=== PATIENT | female | born 1965 | race Two or more races ===

== ENCOUNTER 2024-03-25 23:39 | Emergency (ER) | payer MEDICAID, OTHER ==
[~2024-03-25] VITALS: Ht 162.6 cm; Wt 77.6 kg
[2024-03-26 02:30] LABS: Basophils # (auto) 0 10 ^3/uL (0-0.2); Basophils % (auto) 0.2 % (0.0-2.0); Eosinophils # (auto) 0 10 ^3/uL (0-0.8); Eosinophils % (auto) 0.1 % (0.0-7.0); Hematocrit 40.9 % (36.0-46.0); Hemoglobin 13.7 g/dL (12.2-16.2); Lymphocytes # (auto) 0.9 10 ^3/uL (0.4-5.4); Lymphocytes % (auto) 9.2 % (10.0-50.0); Mean Corpuscular Hemoglobin 29.6 pg (28.0-32.0); Mean Corpuscular Hgb Conc. 33.5 g/dL (32.0-36.0); Mean Corpuscular Volume 88.5 fL (80.0-100.0); Monocytes # (auto) 0.4 10 ^3/uL (0-1.3); Monocytes % (auto) 4.2 % (0.0-12.0); Neutrophils # (auto) 8.2 10 ^3/uL (1.6-8.6); Neutrophils % (auto) 86.3 % (37.0-80.0); Red Blood Cells 4.62 10^6/uL (4.0-5.20); Red Cell Distribution Width 15.3 % (11.8-14.3); White Blood Cell 9.5 10^3/uL (4.4-10.8)
[2024-03-26 02:43] LABS: Alanine Aminotransferase 60 U/L (7-40); Albumin 4.4 g/dL (3.2-4.8); Alkaline Phosphatase 122 U/L (46-116); Anion Gap 8 (5-15); Aspartate Aminotransferase 36 U/L (13-40); Blood Urea Nitrogen 14 mg/dL (9-23); Calcium 9.2 mg/dL (8.7-10.4); Carbon Dioxide 25 mmol/L (20-30); Chloride 104 mmol/L (98-107); Glucose 208 mg/dL (74-106); Potassium 3.4 mmol/L (3.5-5.1); Sodium 137 mmol/L (136-145)
[2024-03-26 02:44] LABS: Bilirubin, Total 1.2 mg/dL (0.2-1.0)
[2024-03-26] MEDS: MECLIZINE HCL 25 MG TAB PO ONE (03:17)
[2024-03-26] MEDS: SODIUM CHLORIDE 0.9% 1,000 ML IV ONE (03:18)
[2024-03-26] MEDS: ONDANSETRON HCL 4 MG/2 ML VIAL IV ONE (03:22)
[2024-03-26] MEDS ORDERED: CEPH500T PO (05:04)
[2024-03-26] MEDS ORDERED: ZOFR4T PO (05:04)
[2024-03-26] MEDS ORDERED: MECL25CH85 PO (05:04)
[2024-03-26 05:45] VITALS: BP 126/70; PULSE 67; RESP 18; TEMP 97.8; O2SAT 96
== END 2024-03-26 05:45 | disposition home or self-care (01) ==
LOC: ER 23:39
DX: R42 Dizziness and giddiness (principal); R11.2 Nausea with vomiting, unspecified; E11.9 Type 2 diabetes mellitus without complications; M19.90 Unspecified osteoarthritis, unspecified site
CPT/HCPCS: 36415; 70450; 80053; 82962; 83880; 84484; 85025; 93005; 96361; 96374; 99285; J2405; J7030; J8597